=== PATIENT | female | born 2000 | race Caucasian/White ===

== ENCOUNTER 2022-01-18 15:29 | Emergency (ER) | payer OTHER ==
[~2022-01-18] VITALS: Ht 170.2 cm; Wt 49.0 kg
[2022-01-18 15:33] VITALS: BP 131/80
[2022-01-18] MEDS ORDERED: ACETAMINOPHEN 325MG TABLET PO ONE (17:45)
[2022-01-18] MEDS: LIDOCAINE 5% PATCH TOP SCH ×4 (17:45→20:43)
[2022-01-18] MEDS ORDERED: IBUPROFEN 400MG TABLET PO ONE (17:45)
[2022-01-18 17:55] LABS: CLARITY URINE CLEAR (CLEAR); COLOR URINE YELLOW (YELLOW); KETONES URINE TRACE (NEGATIVE); LEUKOCYTE ESTERASE URINE NEGATIVE (NEGATIVE); NITRITE URINE NEGATIVE (NEGATIVE); OCCULT BLOOD URINE NEGATIVE (NEGATIVE); PH URINE 5.5 (4.5-8.0); PROTEIN URINE TRACE (NEGATIVE); SPECIFIC GRAVITY URINE 1.031 (1.005-1.030); UROBILINOGEN URINE 0.2 E.U./dL (0.2-1.0)
== END 2022-01-18 23:28 | disposition home or self-care (01) ==
LOC: ER 15:29
DX: M54.50 Low back pain, unspecified (principal); M79.604 Pain in right leg; R20.0 Anesthesia of skin; Z91.81 History of falling
CPT/HCPCS: 72100; 72146; 72148; 81003; 81025; 99285